=== PATIENT | male | born 1955 | race Caucasian/White ===

== ENCOUNTER 2016-12-14 09:07 | Day surgery (SDC) | payer BC, OTHER ==
[2016-12-11 13:48] VITALS: BMI 29.4
[2016-12-14] MEDS ORDERED: PROPOFOL 20 ML ONE ×2 (09:42)
[2016-12-14] MEDS ORDERED: LIDOCAINE HCL 2% (20ML MULTI-DOSE VIAL) NR ONE (09:42)
[2016-12-14 10:14] VITALS: TEMP 97.6
[2016-12-14 11:06] VITALS: BP 113/66; PULSE 56
--- NOTE | 2016-12-15 13:01 | PATH ---
Surgical Pathology Report Patient Name: LIYAH CREWS [facility]. Rec. #: [id number] /Age/Gender: 1955 (Age: 61) / M Account: [id number] Location: U-ENDOSCOPY Taken: 12/14/2016 Received: 12/14/2016 Reported: 12/15/2016 Physicians: Reece Lloyd M.D. Specimen(s) Received RECTAL POLYP Clinical History History of colon polyps, rectal bleeding Rectal polyp, hemorrhoids, diverticulosis Final Diagnosis RECTUM, POLYP, BIOPSY: HYPERPLASTIC POLYP. Electronically Signed Dixon Black M.D. Gross Description Received in formalin, labeled "biopsy rectal polyp" is a johnston, irregular portion of soft tissue measuring 0.3 cm in greatest dimension. The specimen is submitted in toto in one cassette. 12/14/201612/14/2016
== END 2016-12-14 11:17 | disposition home or self-care (01) ==
LOC: JASU-ENDO 09:07
PROVIDERS: ATTEND Internal Medicine Gastroenterology
PROC: 0DBP8ZX Excision of Rectum, Via Natural or Artificial Opening Endoscopic, Diagnostic (ICD-10-PCS; principal; 2016-12-14 10:00)
DX: K64.8 Other hemorrhoids (principal); K57.30 Diverticulosis of large intestine without perforation or abscess without bleeding; K62.1 Rectal polyp
CPT/HCPCS: 88305-TC

== ENCOUNTER 2024-03-27 07:43 | Day surgery (SDC) | payer OTHER ==
[2024-03-15 13:49] VITALS: BMI 32.9
[2024-03-27 08:46] VITALS: RESP 18; TEMP 98
[2024-03-27 09:39] VITALS: BP 125/66; PULSE 53
[2024-03-27 09:54] LABS: BASO % 0.2 % (0-2.0); EOS % 1.5 % (0-4.5); HEMATOCRIT 40.4 % (35.4-49); HEMOGLOBIN 13.9 GM/dL (11.7-16.9); LYMPH % 40.3 % (8-40); MCH 31.9 pg (25.7-33.7); MCHC 34.3 g/dl (32.0-35.9); MEAN CELL VOLUME 92.8 fl (80-96); MEAN PLT VOLUME 6.6 fl (7.5-11.1); MONO % 14.6 % (3.8-10.2); NEUT % 43.4 % (42.8-82.8); PLATELET COUNT 208 10^3/uL (134-434); RBC 4.35 M/mm3 (4.00-5.60); RDW 13.4 % (11.9-15.9)
[2024-03-27 10:47] LABS: CHLORIDE 108 mmol/L (98-107); POTASSIUM 3.8 mmol/L (3.5-5.1); SODIUM 143 mmol/L (136-145)
[2024-03-27 10:50] LABS: ALBUMIN 3.4 g/dl (3.4-5.0); ANION GAP 4 mmol/L (4-13); BLOOD UREA NITROGEN 8.7 mg/dL (7-18); CALCIUM 9.2 mg/dL (8.5-10.1); CO2 30 mmol/L (21-32); GLUCOSE,RANDOM 99 mg/dL (74-106)
[2024-03-27 10:53] LABS: SGPT/ALT 33 U/L (13-61)
[2024-03-27 10:54] LABS: SGOT/AST 23 U/L (15-37)
[2024-03-27 10:55] LABS: BILIRUBIN,TOTAL 0.6 mg/dL (0.2-1); TOT PROT 6.1 g/dl (6.4-8.2)
[2024-03-27 10:56] LABS: ALK PHOS 58 U/L (45-117)
[2024-03-27 13:03] LABS: IRON SERUM 93 ug/dL (50-175); TOTAL IRON BINDING CAPACITY 286 ug/dL (250-450)
== END 2024-03-27 09:39 | disposition home or self-care (01) ==
LOC: JASU-ENDO 07:43
PROVIDERS: ATTEND Internal Medicine Gastroenterology
PROC: 0DJD8ZZ Inspection of Lower Intestinal Tract, Via Natural or Artificial Opening Endoscopic (ICD-10-PCS; principal; 2024-03-27 08:00)
DX: Z12.11 Encounter for screening for malignant neoplasm of colon (principal); K57.30 Diverticulosis of large intestine without perforation or abscess without bleeding; K64.8 Other hemorrhoids; Z86.0100 Personal history of colon polyps, unspecified
CPT/HCPCS: 36415; 80053; 80061; 82728; 83540; 83550; 85025; 86140